=== PATIENT | male | born 1950 | race Caucasian/White ===

== ENCOUNTER 2017-02-05 09:06 | Day surgery (SDC) | payer BC ==
[~2017-02-05 09:06] MED LIST: Lidocaine 1%/Sod Bicarbonate in NS 8.4% 1 ML Syringe PRN; Sodium Chloride 0.9% 10 ML Syringe FLUSH PRN
[2017-02-05] MEDS: Lactated Ringers 1,000 ML IV SCH ×2 (09:30→10:43)
--- NOTE | 2017-02-05 09:54 | PCM.PREANE ---
Preanesthetic Assessment - Procedure Proposed Procedure: Diagnostic EGD - Anesthesia/Transfusion/Family Hx Anesthesia History: Prior Anesthesia Without Reaction Family History of Anesthesia Reaction: No Transfusion History: No Prior Transfusion(s) - Review of Systems General: No Symptoms Pulmonary: No Symptoms Cardiovascular: Other (HTN, heart murmer, hyperlipidemia ) Gastrointestinal: Difficulty Swallowing Neurological: No Symptoms Other: Reports: None - Physical Assessment NPO Status Date: 02/04/17 NPO Status Time: 22:00 O2 Sat by Pulse Oximetry: 95 Respiratory Rate: 20 Vital Signs: Last Vital Signs Temp 36.1 C 02/05/17 09:15 Pulse 53 L 02/05/17 09:15 Resp 20 02/05/17 09:15 BP 144/70 H 02/05/17 09:15 Pulse Ox 95 02/05/17 09:15 Height: 1.75 m Weight: 98.43 kg ASA Class: 2 Mental Status: Alert & Oriented x3 Airway Class: Mallampati = 1 Dentition: Reports: Normal Dentition Thyro-Mental Finger Breadths: 3 Mouth Opening Finger Breadths: 3 ROM/Head Extension: Full Lungs: Clear to Auscultation, Normal Respiratory Effort Cardiovascular: Regular Rate, Regular Rhythm, Murmurs - Allergies Allergies/Adverse Reactions: Allergies Allergy/AdvReac Type Severity Reaction Status Date / Time No Known Drug Allergies Allergy Other Verified 02/04/17 09:33 - Blood Blood Available: No Product(s) Available: None - Acknowledgements Anesthesia Type Planned: MAC Pt an Appropriate Candidate for the Planned Anesthesia: Yes Alternatives and Risks of Anesthesia Discussed w Pt/Guardian: Yes Pt/Guardian Understands and Agrees with Anesthesia Plan: Yes PreAnesthesia Questionnaire HEENT History: Reports: Allergic Rhinitis, Hard of Hearing, Other (See Below) Other HEENT History: bilateral impacted cerumen, bilateral hearing loss Cardiovascular History: Reports: High Cholesterol, Hypertension, Other (See Below) Other Cardiovascular History: chest pain, heart cath Respiratory History: Reports: Other (See Below) Other Respiratory History: cough Gastrointestinal History: Reports: GERD, Other (See Below) Other Gastrointestinal History: abdominal pain, esophagitis, Genitourinary History: Reports: BPH, Other (See Below) Other Genitourinary History: prsotate disease, prostatis Musculoskeletal History: Reports: Arthritis Psychiatric History: Reports: Anxiety, Depression Other Psychiatric History: fatigue Endocrine/Metabolic History: Reports: Obesity/BMI 30+ Other Endocrine/Metabolic History: vit D deficiency Dermatologic History: Reports: Other (See Below) Other Dermatologic History: skin cyst - Past Surgical History GI Surgical History: Reports: Appendectomy Male Surgical History: Reports: Vasectomy - SUBSTANCE USE Smoking Status *Q: Former Smoker Second Hand Smoke Exposure: No Recreational Drug Use History: No - HOME MEDS Home Medications: Home Meds Ascorbic Acid [Vitamin C] 500 mg PO BID 02/27/15 [History] Aspirin [Children's Aspirin] 81 mg PO DAILY 02/27/15 [History] Cholecalciferol (Vitamin D3) [Vitamin D-3] 400 unit PO DAILY 02/27/15 [History] Cranberry Ext/C/L. Sporogenes [Azo Cranberry] 1 tab PO BID 02/27/15 [History] Doxazosin [Cardura] 4 mg PO DAILY 02/27/15 [History] Dutasteride [Avodart] 0.5 mg PO DAILY 02/27/15 [History] Moexipril/Hydrochlorothiazide [Moexipril-HCTZ 15-25 MG] 15 - 25 mg PO DAILY [History] Pravastatin [Pravachol] 40 mg PO DAILY 02/27/15 [History] Saw [place] Fruit [Saw [place]] 450 mg PO BID 02/27/15 [History] Sertraline [Zoloft] 50 mg PO BID 02/27/15 [History] Finasteride [Finasteride] 5 mg PO DAILY 02/04/17 [History] Omeprazole 20 mg PO DAILY 02/04/17 [History] - CURRENT (IN HOUSE) MEDS Current Meds: Current Medications Lactated Ringer's (Ringers, Lactated) 1,000 mls @ 125 mls/hr IV ASDIRECTED EDY Stop: 02/05/17 23:00 Lidocaine/Sodium Bicarbonate (Buffered Lidocaine 1% In Ns 8.4%) 0.25 ml .XX ONETIME PRN PRN Reason: Prior to IV Start Stop: 02/05/17 18:00 Sodium Chloride (Saline Flush) 10 ml FLUSH ASDIRECTED PRN PRN Reason: Keep Vein Open Stop: 02/05/17 18:00
[2017-02-05] MEDS ORDERED: Propofol 200 MG/20 ML SDV ONE (11:14)
[2017-02-05] MEDS ORDERED: Midazolam 1 MG/ML 2 ML SDV ONE (11:15)
[2017-02-05] MEDS ORDERED: Lidocaine 1% 4 ML ONE (11:16)
--- NOTE | 2017-02-05 11:30 | PCM.OPNOTE ---
- General Post-Op/Procedure Note Date of Surgery/Procedure: 02/05/17 Operative Procedure(s): Esophagogastroduodenoscopy with proximal and distal random esophageal biopsies using cold forceps 2 Findings: Normal endoscopy Pre Op Diagnosis: Dysphagia and chronic GERD Post-Op Diagnosis: Same as above Anesthesia Technique: MAC, Moderate Sedation Primary Surgeon: Alon Gonzáles Pathology: Proximal and distal esophageal biopsies EBL in mLs: 0 Complications: None Condition: Good Free Text/Narrative:: After adequate IV sedation and analgesia was obtained patient was placed on his left side. Through a bite block a lubricated upper endoscope was inserted into the esophagus and then advanced under direct vision to the stomach. Additional air was given here. The scope was introduced into the duodenum through the pylorus. The second and first parts of the duodenum were endoscopically normal with no mass lesions or inflammatory changes seen. The antrum was normal as well. In the retroflexed view of the fundus and cardiac regions were unremarkable. There was no hiatal hernia. The rugal folds as well as gastric motility were grossly normal. The scope was withdrawn to the GE junction which was sharp. Random biopsies were taken in this area 2 using cold forceps for histologic review. The body of the esophagus was unremarkable but in the proximal third I took 2 biopsies for evaluation. The vocal cords were grossly normal. Air was removed as I finished the procedure. [employer] Work[employer] Supervisor photographs are taken for the patient and for the record.
[2017-02-05 12:23] VITALS: BP 124/66
== END 2017-02-05 12:15 | disposition home or self-care (01) ==
LOC: JD.SDS 09:06
PROVIDERS: ATTEND Surgery
DX: F41.9 Anxiety disorder, unspecified (principal); N40.1 Benign prostatic hyperplasia with lower urinary tract symptoms; R35.1 Nocturia; E66.9 Obesity, unspecified; K21.9 Gastro-esophageal reflux disease without esophagitis; I10 Essential (primary) hypertension; E78.00 Pure hypercholesterolemia, unspecified; E78.5 Hyperlipidemia, unspecified; E55.9 Vitamin D deficiency, unspecified; Z91.09 Other allergy status, other than to drugs and biological substances; Z79.82 Long term (current) use of aspirin; Z79.899 Other long term (current) drug therapy; Z90.49 Acquired absence of other specified parts of digestive tract; Z98.52 Vasectomy status; Z87.891 Personal history of nicotine dependence
CPT/HCPCS: 43239; 88305; J2250; J7120; 00740; J2704

== ENCOUNTER 2018-11-03 16:19 | Emergency (ER) | payer MEDICARE, BC ==
[2018-11-03] MEDS ORDERED: Sodium Chloride 0.9% 10 ML Syringe FLUSH PRN (16:36)
--- NOTE | 2018-11-03 17:17 | EDM.PDOC ---
ED HPI GENERAL MEDICAL PROBLEM - General Chief Complaint: Chest Pain Stated Complaint: CHEST PAIN Time Seen by Provider: 11/03/18 16:34 Source of Information: Reports: Patient, RN Notes Reviewed - History of Present Illness INITIAL COMMENTS - FREE TEXT/NARRATIVE: 68-year-old male comes in with a several minute episode of chest discomfort at home. He states he was in the process of carrying a box up steps from basement level of his home to the main floor when he developed a tightness across his anterior chest. That did continue for about 2 or 3 minutes. What really concerned him is that he did become "mildly diaphoretic". The pain did not radiate to his shoulder or arm. He did not get nauseated, severely lightheaded or dizzy. No shortness of breath or difficulty breathing. He does feel back to normal at this time. He has had prior episodes of chest discomfort and has had prior angiogram about 3 years ago which is reported to have been "clear". He has had numerous stress tests as well with his last stress test about one year ago. He does have a chronic heart murmur. He is not diabetic. He does not smoke. Family history is okay with some aunts and uncles with heart disease, mother " of congestive heart failure". Chest Pain Score (Numeric/FACES): 8 - Related Data Allergies Allergy/AdvReac Type Severity Reaction Status Date / Time No Known Drug Allergies Allergy Other Verified 11/03/18 16:27 Home Meds: Home Meds Ascorbic Acid [Vitamin C] 500 mg PO BID 02/27/15 [History] Aspirin [Children's Aspirin] 81 mg PO DAILY 02/27/15 [History] Cholecalciferol (Vitamin D3) [Vitamin D3] 400 unit PO DAILY 02/27/15 [History] Cranberry Ext/C/L. Sporogenes [Azo Cranberry] 1 tab PO BID 02/27/15 [History] Doxazosin [Cardura] 4 mg PO DAILY 02/27/15 [History] Dutasteride [Avodart] 0.5 mg PO DAILY 02/27/15 [History] Moexipril/Hydrochlorothiazide [Moexipril-HCTZ 15-25 MG] 15 - 25 mg PO DAILY [History] Pravastatin [Pravachol] 40 mg PO DAILY 02/27/15 [History] Saw [place] Fruit [Saw [place]] 450 mg PO BID 02/27/15 [History] Sertraline [Zoloft] 50 mg PO BID 02/27/15 [History] Finasteride 5 mg PO DAILY 02/04/17 [History] Omeprazole 20 mg PO DAILY 02/04/17 [History] Past Medical History HEENT History: Reports: Allergic Rhinitis, Hard of Hearing, Other (See Below) Other HEENT History: bilateral impacted cerumen, bilateral hearing loss Cardiovascular History: Reports: High Cholesterol, Hypertension, Other (See Below) Other Cardiovascular History: chest pain, heart cath Respiratory History: Reports: Other (See Below) Other Respiratory History: cough Gastrointestinal History: Reports: GERD, Other (See Below) Other Gastrointestinal History: abdominal pain, esophagitis, Genitourinary History: Reports: BPH, Other (See Below) Other Genitourinary History: prsotate disease, prostatis Musculoskeletal History: Reports: Arthritis Neurological History: Reports: None Psychiatric History: Reports: Anxiety, Depression Other Psychiatric History: fatigue Endocrine/Metabolic History: Reports: Obesity/BMI 30+ Other Endocrine/Metabolic History: vit D deficiency Hematologic History: Reports: None Immunologic History: Reports: None Oncologic (Cancer) History: Reports: None Dermatologic History: Reports: Other (See Below) Other Dermatologic History: skin cyst - Past Surgical History Head Surgeries/Procedures: Reports: None GI Surgical History: Reports: Appendectomy Male Surgical History: Reports: Vasectomy Social & Family History - Family History Family Medical History: Noncontributory Cardiac: Reports: CAD, Heart Failure Oncologic: Reports: Lung, Prostate - Tobacco Use Smoking Status *Q: Never Smoker - Caffeine Use Caffeine Use: Reports: None - Recreational Drug Use Recreational Drug Use: No ED ROS GENERAL - Review of Systems Review Of Systems: See Below Constitutional: Reports: Diaphoresis. Denies: Fever, Chills HEENT: Reports: No Symptoms (Mild, gone) Respiratory: Denies: Shortness of Breath, Pleuritic Chest Pain Cardiovascular: Reports: Chest Pain (Gone) GI/Abdominal: Denies: Abdominal Pain, Nausea, Vomiting Musculoskeletal: Denies: Neck Pain, Shoulder Pain, Arm Pain Neurological: Denies: Dizziness, Syncope, Trouble Speaking, Difficulty Walking ED EXAM, GENERAL - Physical Exam Exam: See Below General Appearance: Alert Eye Exam: Bilateral Eye: PERRL Throat/Mouth: Normal Inspection Head: Atraumatic. No: Facial Swelling Neck: Supple, Full Range of Motion Respiratory/Chest: No Respiratory Distress, Lungs Clear, Normal Breath Sounds, Chest Non-Tender Cardiovascular: Regular Rate, Rhythm, Systolic Murmur GI/Abdominal: Soft, Non-Tender Extremities: Normal Inspection Neurological: Alert, Oriented Skin Exam: Warm, Dry, Normal Color EKG INTERPRETATION EKG Date: 11/03/18 Rhythm: NSR P-Wave: Present QRS: Normal ST-T: Depressed (mild st depression V2-V4) Course - Vital Signs Last Recorded V/S: Last Vital Signs Temp 97.8 F 11/03/18 16:32 Pulse 69 11/03/18 16:32 Resp 16 11/03/18 16:32 BP 134/66 11/03/18 16:32 Pulse Ox 95 11/03/18 16:32 - Orders/Labs/Meds Orders: Active Orders 24 hr Category Date Time Status EKG 12 Lead [EKG Documentation Completion] [RC] STAT Care 11/03/18 16:36 Active Peripheral IV Care [RC] . DIRECTED Care 11/03/18 16:37 Active Chest 1V Frontal [CR] Stat Exams 11/03/18 16:36 Taken CBC W/O DIFF,HEMOGRAM [HEME] MOTH@0700 Lab 11/05/18 07:00 Ordered CBC W/O DIFF,HEMOGRAM [HEME] MOTH@0700 Lab 11/09/18 07:00 Ordered CBC W/O DIFF,HEMOGRAM [HEME] MOTH@0700 Lab 11/12/18 07:00 Ordered CBC W/O DIFF,HEMOGRAM [HEME] MOTH@0700 Lab 11/16/18 07:00 Ordered CBC W/O DIFF,HEMOGRAM [HEME] MOTH@0700 Lab 11/19/18 07:00 Ordered CBC W/O DIFF,HEMOGRAM [HEME] MOTH@0700 Lab 11/23/18 07:00 Ordered Heparin Sodium/D5W [Heparin 25,000 Units in D5W 500 ML] Med 11/03/18 19:15 Ordered 25,000 units in 500 ml IV TITRATE Sodium Chloride 0.9% [Saline Flush] Med 11/03/18 16:36 Active 10 ml FLUSH ASDIRECTED PRN Peripheral IV Insertion Adult [OM.PC] Stat Oth 11/03/18 16:36 Ordered Medication Orders Heparin Sodium/Dextrose (Heparin 25,000 Units In D5w 500 Ml) 25,000 units in 500 mls @ 23.623 mls/hr IV TITRATE EDY; Protocol Last Admin: 11/03/18 19:23 Dose: 12 units/kg/hr, 23.623 mls/hr Sodium Chloride (Saline Flush) 10 ml FLUSH ASDIRECTED PRN PRN Reason: Keep Vein Open Last Admin: 11/03/18 16:51 Dose: 10 ml Labs: Laboratory Tests 11/03/18 11/03/18 11/03/18 Range/Units 16:25 16:25 18:15 WBC 7.33 (4.23-9.07) K/mm3 RBC 4.96 (4.63-6.08) M/mm3 Hgb 13.8 D (13.7-17.5) gm/L Hct 42.0 (40.1-51.0) % MCV 84.7 (79.0-92.2) fl MCH 27.8 (25.7-32.2) pg MCHC 32.9 (32.2-35.5) g/dl RDW Std Deviation 44.1 H (35.1-43.9) fL Plt Count 208 (163-337) K/mm3 MPV 9.9 (9.4-12.3) fl Neut % (Auto) 85.8 H (34.0-67.9) % Lymph % (Auto) 9.1 L (21.8-53.1) % [place] % (Auto) 4.4 L (5.3-12.2) % Eos % (Auto) 0.4 L (0.8-7.0) Baso % (Auto) 0.0 L (0.1-1.2) % Neut # (Auto) 6.29 H (1.78-5.38) K/mm3 Lymph # (Auto) 0.67 L (1.32-3.57) K/mm3 [place] # (Auto) 0.32 (0.30-0.82) K/mm3 Eos # (Auto) 0.03 L (0.04-0.54) K/mm3 Baso # (Auto) 0.00 L (0.01-0.08) K/mm3 Manual Slide Review Normal smear Sodium 141 (136-145) mEq/L Potassium 3.8 (3.5-5.1) mEq/L Chloride 106 (98-107) mEq/L Carbon Dioxide 23 (21-32) mEq/L Anion Gap 15.8 H (5-15) BUN 32 H (7-18) mg/dL Creatinine 1.4 H (0.7-1.3) mg/dL Est Cr Clr Drug Dosing 52.14 mL/min Estimated GFR (MDRD) 50 (>60) mL/min BUN/Creatinine Ratio 22.9 H (14-18) Glucose 147 H (80-115) mg/dL Calcium 10.2 H (8.5-10.1) mg/dL Total Bilirubin 0.8 (0.2-1.0) mg/dL AST 24 (15-37) U/L ALT 52 (16-63) U/L Alkaline Phosphatase 63 (46-116) U/L Troponin I 0.024 0.044 (0.00-0.056) ng/mL Total Protein 7.2 (6.4-8.2) g/dl Albumin 4.0 (3.4-5.0) g/dl Globulin 3.2 gm/dL Albumin/Globulin Ratio 1.3 (1-2) Meds: Medications Generic Name Dose Route Start Last Admin Trade Name Freq PRN Reason Stop Dose Admin Heparin Sodium/Dextrose 25,000 units in 500 mls @ 23.623 mls/hr 11/03/18 19: 15 11/03/18 19:23 Heparin 25,000 Units In D5w 500 Ml IV 12 units/kg/hr TITRATE EDY 23.623 mls/hr Administration Protocol 12 UNITS/KG/HR Sodium Chloride 10 ml 11/03/18 16:36 11/03/18 16:51 Saline Flush FLUSH 10 ml ASDIRECTED PRN Administration Keep Vein Open Discontinued Medications Generic Name Dose Route Start Last Admin Trade Name Freq PRN Reason Stop Dose Admin Aspirin 324 mg 11/03/18 18:08 11/03/18 18:17 Aspirin PO 11/03/18 18:09 324 mg ONETIME ONE Administration Heparin Sodium (Porcine) 4,000 units 11/03/18 19:13 11/03/18 19:22 Heparin Sodium IVPUSH 11/03/18 19:14 4,000 units ONETIME ONE Administration - Re-Assessments/Exams Free Text/Narrative Re-Assessment/Exam: 11/03/18 18:11 EKG normal, CXR looks good, trop has come back slightly above usual baseline of .017 at .024. Will check a repeat trop at this time which will be about a 2 hr trop. Have given ASA 324 mg PO. 11/03/18 19:16. Repeat troponin came back further elevated at 0.044. He remains pain-free while here in the ED. However with these levels higher than the typical baseline reading of 0.017 and almost 50% increase in 2 hours I feel he should be transferred to [place] for Cardiology referral. His personal physician is Dr. Hernandez, [facility]. I have called [facility] first, therefore, they have no beds or ability to accept this patient this evening. Therefore I have contacted [facility], Dr Pulido, Hospitalist accepting Phys. He remains pain-free, has continued in sinus rhythm no ectopy. Have given heaparin 4000 mg bolus and have him on a heparin drip. He will be transferred by ground ambulance. Departure - Departure Time of Disposition: 19:38 Disposition: DC/Tfer to [facility] 02 Reason for Transfer *Q: Other Condition: Fair Clinical Impression: Acute coronary syndrome Referrals: Jeromy Hernandez MD [Primary Care Provider] - Forms: ED Department Discharge - My Orders Last 24 Hours: My Active Orders 11/03/18 16:36 EKG 12 Lead [EKG Documentation Completion] [RC] STAT Chest 1V Frontal [CR] Stat Sodium Chloride 0.9% [Saline Flush] 10 ml FLUSH ASDIRECTED PRN Peripheral IV Insertion Adult [OM.PC] Stat 11/03/18 16:37 Peripheral IV Care [RC] . DIRECTED 11/03/18 19:15 Heparin Sodium/D5W [Heparin 25,000 Units in D5W 500 ML] 25,000 units in 500 ml IV TITRATE 11/05/18 07:00 CBC W/O DIFF,HEMOGRAM [HEME] MOTH@0700 11/09/18 07:00 CBC W/O DIFF,HEMOGRAM [HEME] MOTH@0700 11/12/18 07:00 CBC W/O DIFF,HEMOGRAM [HEME] MOTH@0700 11/16/18 07:00 CBC W/O DIFF,HEMOGRAM [HEME] MOTH@0711/19/18 07:00 CBC W/O DIFF,HEMOGRAM [HEME] MOTH@69911/23/18 07:00 CBC W/O DIFF,HEMOGRAM [HEME] MOTH@699 - Assessment/Plan Last 24 Hours: My Active Orders 11/03/18 16:36 EKG 12 Lead [EKG Documentation Completion] [RC] STAT Chest 1V Frontal [CR] Stat Sodium Chloride 0.9% [Saline Flush] 10 ml FLUSH ASDIRECTED PRN Peripheral IV Insertion Adult [OM.PC] Stat 11/03/18 16:37 Peripheral IV Care [RC] . DIRECTED 11/03/18 19:15 Heparin Sodium/D5W [Heparin 25,000 Units in D5W 500 ML] 25,000 units in 500 ml IV TITRATE 11/05/18 07:00 CBC W/O DIFF,HEMOGRAM [HEME] MOTH@0711/09/18 07:00 CBC W/O DIFF,HEMOGRAM [HEME] MOTH@69911/12/18 07:00 CBC W/O DIFF,HEMOGRAM [HEME] MOTH@69911/16/18 07:00 CBC W/O DIFF,HEMOGRAM [HEME] MOTH@69911/19/18 07:00 CBC W/O DIFF,HEMOGRAM [HEME] MOTH@69911/23/18 07:00 CBC W/O DIFF,HEMOGRAM [HEME] MOTH@699
[2018-11-03] MEDS ORDERED: Aspirin 81 MG Tab.Chew PO ONE (18:08)
[2018-11-03] MEDS ORDERED: Heparin Sodium 5,000 Units/ML Vial IVPUSH ONE (19:13)
[2018-11-03] MEDS ORDERED: Heparin Sodium/D5W 25,000 UNITS/500 ML BAG IV SCH (19:15)
[2018-11-03 19:50] VITALS: BP 150/97
--- NOTE | 2018-11-04 06:38 | CR ---
Chest: Portable view of the chest was obtained. Comparison: No prior chest imaging is available. Heart size is felt to be slightly enlarged. Upper mediastinum is normal. Lungs are clear with no acute parenchymal change. Bony structures are grossly intact. Impression: 1. Slightly enlarged heart. Nothing acute is appreciated on portable chest x-ray. Diagnostic code #2
== END 2018-11-03 20:00 ==
LOC: JD.ED 16:19
DX: I24.9 Acute ischemic heart disease, unspecified (principal); E78.00 Pure hypercholesterolemia, unspecified; I10 Essential (primary) hypertension; F41.9 Anxiety disorder, unspecified; F32.9 Major depressive disorder, single episode, unspecified; Z79.82 Long term (current) use of aspirin; Z79.899 Other long term (current) drug therapy
CPT/HCPCS: 36415; 71045; 80053; 84484; 85025; 93005; 96365; 96376; 99285; A9270; J1644; 93010; 99284

== ENCOUNTER 2019-03-28 13:42 | Emergency (ER) | payer MEDICARE, BC ==
[2019-03-28 13:53] VITALS: BP 159/64; PULSE 52
--- NOTE | 2019-03-28 15:24 | EDM.PDOC ---
ED HPI GENERAL MEDICAL PROBLEM - General Chief Complaint: Cardiovascular Problem Stated Complaint: HIGH BLOOD PRESSURE Time Seen by Provider: 03/28/19 13:59 Source of Information: Reports: Patient History Limitations: Reports: No Limitations - History of Present Illness INITIAL COMMENTS - FREE TEXT/NARRATIVE: The patient presents with some dizziness and hypertension. The patient had some adjustments to her medications when he was sent to [place]. Ever since then his blood pressures have been running high. Today he was feeling good but developed some dizziness and his blood pressure was 180/80. He denies headache , weakness, chest pain, shortness of breath, abdominal pain, nausea or vomiting. Onset: Gradual Duration: Minutes: Severity: Mild Improves with: Reports: None Worsens with: Reports: None Associated Symptoms: Reports: No Other Symptoms - Related Data Allergies Allergy/AdvReac Type Severity Reaction Status Date / Time No Known Drug Allergies Allergy Other Verified 03/28/19 13:52 Home Meds: Home Meds Ascorbic Acid [Vitamin C] 500 mg PO BID 02/27/15 [History] Aspirin [Children's Aspirin] 81 mg PO DAILY 02/27/15 [History] Cholecalciferol (Vitamin D3) [Vitamin D3] 2,000 unit PO DAILY 02/27/15 [History] Cranberry Ext/C/L. Sporogenes [Azo Cranberry] 1 tab PO BID 02/27/15 [History] Pravastatin [Pravachol] 40 mg PO DAILY 02/27/15 [History] Saw Orla Fruit [Saw Orla] 450 mg PO BID 02/27/15 [History] Sertraline [Zoloft] 100 mg PO DAILY 02/27/15 [History] Finasteride 5 mg PO DAILY 02/04/17 [History] Omeprazole 20 mg PO DAILY 02/04/17 [History] Tamsulosin HCl [Flomax] 0.4 mg PO DAILY 03/28/19 [History] amLODIPine [Norvasc] 10 mg PO DAILY 03/28/19 [History] Past Medical History HEENT History: Reports: Allergic Rhinitis, Hard of Hearing, Other (See Below) Other HEENT History: bilateral impacted cerumen, bilateral hearing loss Cardiovascular History: Reports: High Cholesterol, Hypertension, Other (See Below) Other Cardiovascular History: chest pain, heart cath Respiratory History: Reports: Other (See Below) Other Respiratory History: cough Gastrointestinal History: Reports: GERD, Other (See Below) Other Gastrointestinal History: abdominal pain, esophagitis, Genitourinary History: Reports: BPH, Other (See Below) Other Genitourinary History: prsotate disease, prostatis Musculoskeletal History: Reports: Arthritis Neurological History: Reports: None Psychiatric History: Reports: Anxiety, Depression Other Psychiatric History: fatigue Endocrine/Metabolic History: Reports: Obesity/BMI 30+ Other Endocrine/Metabolic History: vit D deficiency Hematologic History: Reports: None Immunologic History: Reports: None Oncologic (Cancer) History: Reports: None Dermatologic History: Reports: Other (See Below) Other Dermatologic History: skin cyst - Past Surgical History Head Surgeries/Procedures: Reports: None GI Surgical History: Reports: Appendectomy Male Surgical History: Reports: Vasectomy Social & Family History - Family History Family Medical History: Noncontributory Cardiac: Reports: CAD, Heart Failure Oncologic: Reports: Lung, Prostate - Tobacco Use Smoking Status *Q: Former Smoker Used Tobacco, but Quit: Yes Month/Year Tobacco Last Used: 1979 - Caffeine Use Caffeine Use: Reports: None - Recreational Drug Use Recreational Drug Use: No ED ROS GENERAL - Review of Systems Review Of Systems: See Below Constitutional: Reports: No Symptoms HEENT: Reports: No Symptoms Respiratory: Reports: No Symptoms Cardiovascular: Reports: No Symptoms Endocrine: Reports: No Symptoms GI/Abdominal: Reports: No Symptoms : Reports: No Symptoms Musculoskeletal: Reports: No Symptoms Skin: Reports: No Symptoms Neurological: Reports: No Symptoms Psychiatric: Reports: No Symptoms ED EXAM, GENERAL - Physical Exam Exam: See Below Exam Limited By: No Limitations General Appearance: Alert, No Apparent Distress Ears: Normal External Exam Nose: Normal Inspection Head: Atraumatic, Normocephalic Neck: Normal Inspection Respiratory/Chest: No Respiratory Distress, Lungs Clear, Normal Breath Sounds Cardiovascular: Regular Rate, Rhythm, No Edema, No Murmur GI/Abdominal: Soft, Non-Tender, No Organomegaly, No Mass Back Exam: Normal Inspection Extremities: Normal Inspection EKG INTERPRETATION EKG Date: 03/28/19 Time: 14:22 Rhythm: Other (sinus bradycardia) [place]: Normal P-Wave: Present QRS: Normal ST-T: Normal QT: Normal EKG Interpretation Comments: Q waves in the anterior leads seen on prior EKG. Course - Vital Signs Last Recorded V/S: Last Vital Signs Temp 97.4 F 03/28/19 13:50 Pulse 52 L 03/28/19 13:50 Resp 16 03/28/19 13:50 BP 159/64 H 03/28/19 13:50 Pulse Ox 97 03/28/19 13:50 - Orders/Labs/Meds Orders: Active Orders 24 hr Category Date Time Status Cardiac Monitoring [RC] . DIRECTED Care 03/28/19 14:10 Active EKG Documentation Completion [RC] STAT Care 03/28/19 14:10 Active Labs: Laboratory Tests 03/28/19 03/28/19 Range/Units 14:23 14:23 WBC 5.62 (4.23-9.07) K/mm3 RBC 5.23 (4.63-6.08) M/mm3 Hgb 14.7 (13.7-17.5) gm/dl Hct 43.9 (40.1-51.0) % MCV 83.9 (79.0-92.2) fl MCH 28.1 (25.7-32.2) pg MCHC 33.5 (32.2-35.5) g/dl RDW Std Deviation 44.3 H (35.1-43.9) fL Plt Count 191 (163-337) K/mm3 MPV 9.9 (9.4-12.3) fl Neut % (Auto) 61.0 (34.0-67.9) % Lymph % (Auto) 24.2 (21.8-53.1) % [place] % (Auto) 12.8 H (5.3-12.2) % Eos % (Auto) 1.6 (0.8-7.0) Baso % (Auto) 0.2 (0.1-1.2) % Neut # (Auto) 3.43 (1.78-5.38) K/mm3 Lymph # (Auto) 1.36 (1.32-3.57) K/mm3 [place] # (Auto) 0.72 (0.30-0.82) K/mm3 Eos # (Auto) 0.09 (0.04-0.54) K/mm3 Baso # (Auto) 0.01 (0.01-0.08) K/mm3 Sodium 142 (136-145) mEq/L Potassium 4.0 (3.5-5.1) mEq/L Chloride 109 H (98-107) mEq/L Carbon Dioxide 26 (21-32) mEq/L Anion Gap 11.0 (5-15) BUN 16 (7-18) mg/dL Creatinine 1.0 (0.7-1.3) mg/dL Est Cr Clr Drug Dosing 70.70 mL/min Estimated GFR (MDRD) > 60 (>60) mL/min BUN/Creatinine Ratio 16.0 (14-18) Glucose 101 (80-115) mg/dL Calcium 9.9 (8.5-10.1) mg/dL Total Bilirubin 1.0 (0.2-1.0) mg/dL AST 14 L (15-37) U/L ALT 37 (16-63) U/L Alkaline Phosphatase 77 (46-116) U/L Troponin I < 0.017 (0.00-0.056) ng/mL Total Protein 6.9 (6.4-8.2) g/dl Albumin 3.9 (3.4-5.0) g/dl Globulin 3.0 gm/dL Albumin/Globulin Ratio 1.3 (1-2) - Re-Assessments/Exams Free Text/Narrative Re-Assessment/Exam: 03/28/19 15:25 I ordered an EKG and labs. His EKG shows a NSR with no acute changes. His CBC and CMP look good. His troponin is negative. I will discharge him home. Departure - Departure Time of Disposition: 15:30 Disposition: Home, Self-Care 01 Condition: Good Clinical Impression: Dizziness Hypertension Qualifiers: Hypertension type: essential hypertension Qualified Code(s): I10 - Essential ( primary) hypertension Referrals: Jeromy Hernandez MD [Primary Care Provider] - 1 Week Additional Instructions: Take your medication as prescribed. Talk to Dr Hernandez or follow up with him and see what changes he would like to make. - My Orders Last 24 Hours: My Active Orders 03/28/19 14:10 Cardiac Monitoring [RC] . DIRECTED EKG Documentation Completion [RC] STAT - Assessment/Plan Last 24 Hours: My Active Orders 03/28/19 14:10 Cardiac Monitoring [RC] . DIRECTED EKG Documentation Completion [RC] STAT
== END 2019-03-28 15:45 | disposition home or self-care (01) ==
LOC: JD.ED 13:42
DX: I10 Essential (primary) hypertension (principal); E78.00 Pure hypercholesterolemia, unspecified; K21.9 Gastro-esophageal reflux disease without esophagitis; F41.9 Anxiety disorder, unspecified; F32.9 Major depressive disorder, single episode, unspecified; Z87.891 Personal history of nicotine dependence; Z79.82 Long term (current) use of aspirin; Z79.899 Other long term (current) drug therapy
CPT/HCPCS: 36415; 80053; 84484; 85025; 93005; 99283-25

== ENCOUNTER 2020-05-16 07:50 | Day surgery (SDC) | payer MEDICARE, BC ==
[~2020-05-16 07:50] MED LIST changes: +Lactated Ringers 1,000 ML IV SCH; +Lidocaine 1%/Sod Bicarbonate in NS 8.4% 1 ML Syringe IDERM PRN; -Lidocaine 1%/Sod Bicarbonate in NS 8.4% 1 ML Syringe PRN
--- NOTE | 2020-05-16 07:55 | PCM.PREANE ---
Preanesthetic Assessment - Procedure Proposed Procedure: Screening Colonoscopy - Anesthesia/Transfusion/Family Hx Anesthesia History: Prior Anesthesia Without Reaction Family History of Anesthesia Reaction: No Transfusion History: No Prior Transfusion(s) Intubation History: Unknown - Review of Systems General: No Symptoms Pulmonary: No Symptoms (Former smoker: quit 1979 ETOH: rarely), Cough (Post nasal drip/cough) Cardiovascular: No Symptoms (2016 carciac work up including angiography which was benign. No history of [place]./HTN, Hyperlipidemia, Elevated cholesterol), Dyspnea on Exertion Gastrointestinal: No Symptoms (GERD- related to chest pain/improved on prilosec), Constipation Neurological: No Symptoms (lower chronic back pain), Dizziness (related to vertigo) Other: Reports: None (BPH), Easy Bleeding, Sinus Problem (Allergic rhinitis), Throat Pain (History of TMJ), Neck Pain (stiff neck), Anxiety - Physical Assessment NPO Status Date: 05/16/20 NPO Status Time: 04:00 (drink prep) Vital Signs: HR:86 Sat:95% Temp:97.8 Resp:16 B/P:162/81 Height: 1.75 m Weight: 96 kg ASA Class: 2 Mental Status: Alert & Oriented x3 Airway Class: Mallampati = 2 Dentition: Reports: Normal Dentition, Caries Thyro-Mental Finger Breadths: 3 Mouth Opening Finger Breadths: 3 ROM/Head Extension: Full Lungs: Clear to Auscultation, Normal Respiratory Effort Cardiovascular: Regular Rate, Regular Rhythm, Murmurs - Imaging/EKG Impressions: EKG: SR rate=61, Probable left atrial abnormality, age indeterminate anterior infarct (No changes from previous 2019 EKG) - Allergies Allergies/Adverse Reactions: Allergies Allergy/AdvReac Type Severity Reaction Status Date / Time No Known Drug Allergies Allergy Other Verified 05/15/20 13:05 - Anesthesia Plan Pre-Op Medication Ordered: None - Acknowledgements Anesthesia Type Planned: MAC Pt an Appropriate Candidate for the Planned Anesthesia: Yes Alternatives and Risks of Anesthesia Discussed w Pt/Guardian: Yes Pt/Guardian Understands and Agrees with Anesthesia Plan: Yes PreAnesthesia Questionnaire HEENT History: Reports: Allergic Rhinitis, Hard of Hearing, Impaired Vision, Other (See Below) Other HEENT History: bilateral impacted cerumen, bilateral hearing loss, TMJ, wears glasses Cardiovascular History: Reports: High Cholesterol, Hypertension, Other (See Below) Other Cardiovascular History: chest pain, heart cath, chest discomfort Respiratory History: Reports: Other (See Below) Other Respiratory History: cough Gastrointestinal History: Reports: GERD, Other (See Below) Other Gastrointestinal History: abdominal pain, esophagitis Genitourinary History: Reports: BPH, Other (See Below) Other Genitourinary History: prsotate disease, prostatis [employer] History: Reports: None Musculoskeletal History: Reports: Arthritis Neurological History: Reports: None Psychiatric History: Reports: Anxiety, Depression Other Psychiatric History: fatigue Endocrine/Metabolic History: Reports: Obesity/BMI 30+, Vitamin D Deficiency Other Endocrine/Metabolic History: vit D deficiency Hematologic History: Reports: None Immunologic History: Reports: None Oncologic (Cancer) History: Reports: None Dermatologic History: Reports: Other (See Below) Other Dermatologic History: skin cyst - Infectious Disease History Infectious Disease History: Reports: None - Past Surgical History Head Surgeries/Procedures: Reports: None Cardiovascular Surgical History: Reports: None Respiratory Surgical History: Reports: None GI Surgical History: Reports: Appendectomy, Colonoscopy, EGD Male Surgical History: Reports: Vasectomy Other Male Surgeries/Procedures: enlarged prostate Neurological Surgical History: Reports: None Musculoskeletal Surgical History: Reports: None Oncologic Surgical History: Reports: None - SUBSTANCE USE Tobacco Use Status *Q: Former Tobacco User Recreational Drug Use History: No - HOME MEDS Home Medications: Home Meds Ascorbic Acid [Vitamin C] 500 mg PO DAILY 02/27/15 [History] Aspirin [Children's Aspirin] 81 mg PO DAILY 02/27/15 [History] Cholecalciferol (Vitamin D3) [Vitamin D3] 2,000 unit PO DAILY 02/27/15 [History] Pravastatin [Pravachol] 40 mg PO DAILY 02/27/15 [History] Saw Julian Fruit [Saw Julian] 450 mg PO BID 02/27/15 [History] Sertraline [Zoloft] 50 mg PO BID 02/27/15 [History] Finasteride 5 mg PO DAILY 02/04/17 [History] Omeprazole 20 mg PO DAILY 02/04/17 [History] Tamsulosin HCl [Flomax] 0.8 mg PO DAILY 03/28/19 [History] Acetaminophen [Tylenol Extra Strength] 1,000 mg PO Q6H PRN 05/15/20 [History] Cranberry 400 mg PO DAILY 05/15/20 [History] Docusate Sodium [Colace] 100 mg PO BID PRN 05/15/20 [History] Lisinopril/Hydrochlorothiazide [Lisinopril-Hctz 20-25 mg Tab] 1 tab PO DAILY 05/15/20 [History] Naproxen Sodium 220 mg PO BID PRN 05/15/20 [History] - CURRENT (IN HOUSE) MEDS Current Meds: Current Medications Lactated Ringer's (Ringers, Lactated) 1,000 mls @ 125 mls/hr IV ASDIRECTED EDY Stop: 05/16/20 23:00 Lidocaine/Sodium Bicarbonate (Buffered Lidocaine 1% In Ns 8.4%) 0.25 ml IDERM ONETIME PRN PRN Reason: Prior to IV Start Stop: 05/16/20 18:00 Sodium Chloride (Saline Flush) 10 ml FLUSH ASDIRECTED PRN PRN Reason: Keep Vein Open Stop: 05/16/20 18:00
[2020-05-16] MEDS ORDERED: Lidocaine 1% 2 ML ONE ×2 (08:24)
[2020-05-16] MEDS ORDERED: Propofol 200 MG/20 ML SDV ONE ×2 (08:24→08:53)
[2020-05-16] MEDS ORDERED: fentaNYL 100 MCG/2 ML SDV ONE (08:24)
--- NOTE | 2020-05-16 09:35 | PCM48HPAN ---
Post Anesthesia Note - EVALUATION WITHIN 48HRS OF ANESTHETIC Vital Signs in Normal Range: Yes Patient Participated in Evaluation: Yes Respiratory Function Stable: Yes Airway Patent: Yes Cardiovascular Function Stable: Yes Hydration Status Stable: Yes Pain Control Satisfactory: Yes Nausea and Vomiting Control Satisfactory: Yes Mental Status Recovered: Yes Vital Signs: Last Vital Signs Temp 36.6 C 05/16/20 07:55 Pulse 86 05/16/20 07:55 Resp 16 05/16/20 07:55 BP 162/81 H 05/16/20 07:55 Pulse Ox 95 05/16/20 07:55
--- NOTE | 2020-05-16 09:39 | PCM.PRNOTE ---
- Free Text/Narrative Note: Date: 05/16/2020 Procedure: screening olonoscopy Endoscopist: Humberto Rosa MD Findings: Cecum reached with colonoscope. Prep was very good. There appeared to be a few scattered small vascular lesions like hemangiomas, with hyperpigmentation, mostly in the rectum. One such lesion was biopsied in the cecum. Sigmoid diverticulosis. Detailed Report: The patient was taken to the endoscopy suite and placed in left lateral decubitus position. Time out was performed and monitored anesthesia care was initiated. Visual inspection of the anus revealed no abnormality. Digital rectal exam was unremarkable. The lubricated colonoscope was then inserted and advanced all the way to the cecum. The ileocecal valve and appendiceal orifice were visualized. The prep was very good. On slow withdrawal of the scope, mucosal surfaces were carefully inspected. A small, raised hyperpigmented lesion that appeared to be vascular in origin was noted in the cecum. This was removed with forceps and the base tissue was fulgurated. There was diverticular disease, mostly in the sigmoid colon. A few other telangiectatic lesions were noted in the rectum. On retroflexion within the rectum no abnormalities were noted. Air was suctioned prior to removal of the scope. The patient tolerated the procedure well.
[2020-05-16 10:07] VITALS: BP 129/77; PULSE 58
== END 2020-05-16 10:12 | disposition home or self-care (01) ==
LOC: JD.SDS 07:50
PROVIDERS: ATTEND Surgery
DX: Z12.11 Encounter for screening for malignant neoplasm of colon (principal); K63.89 Other specified diseases of intestine; K63.5 Polyp of colon; K57.30 Diverticulosis of large intestine without perforation or abscess without bleeding; F41.9 Anxiety disorder, unspecified; N40.1 Benign prostatic hyperplasia with lower urinary tract symptoms; R35.1 Nocturia; E66.9 Obesity, unspecified; I10 Essential (primary) hypertension; E78.00 Pure hypercholesterolemia, unspecified; Z91.048 Other nonmedicinal substance allergy status; Z79.82 Long term (current) use of aspirin; Z79.899 Other long term (current) drug therapy; Z98.890 Other specified postprocedural states; Z87.891 Personal history of nicotine dependence; Z68.25 Body mass index [BMI] 25.0-25.9, adult
CPT/HCPCS: 45380; J2001; J2704; J3010; J7120; 00812

== ENCOUNTER 2020-12-05 13:01 | Emergency (ER) | payer MEDICARE, BC ==
[2020-12-05] MEDS ORDERED: Colchicine 0.6 MG Tab PO ONE (13:51)
[2020-12-05] MEDS ORDERED: predniSONE 20 MG Tab PO ONE (13:52)
--- NOTE | 2020-12-05 13:57 | EDM.PDOC ---
ED HPI GENERAL MEDICAL PROBLEM - General Chief Complaint: Lower Extremity Injury/Pain Stated Complaint: LT FOOT PAIN X 5 DAYS Time Seen by Provider: 12/05/20 13:40 Source of Information: Reports: Patient History Limitations: Reports: No Limitations - History of Present Illness INITIAL COMMENTS - FREE TEXT/NARRATIVE: 70-year-old male presents to the ED with acute pain in his right ankle and midfoot starting about 5 days ago. Patient states he awoke about 0400 hrs. in the morning to void and recognize severe pain with walking in the arch and mid right foot. Subsequently the pain is gradually increased in intensity in spite of using Aleve for pain. Is also developed some mild pain in the left midfoot. Patient has had one gout attack in the left foot in the past. Patient has no known trauma but he can barely walk at present time and in fact came to the ED on crutches due to the severity of pain in his right foot. Onset: Sudden Onset Date: 12/01/20 Duration: Day(s):, Constant, Getting Worse Location: Reports: Lower Extremity, Right (Pain in the mid right foot and ankle) Quality: Reports: Ache, Throbbing Severity: Severe (8-9 out of 10.) Improves with: Reports: Rest Worsens with: Reports: Other (Severe pain with walking or weightbearing on the right side.) Context: Reports: Other (Spontaneous occurrence starting 5 nights ago when he a woke to void in the middle of the night he recognized severe pain in his right midfoot). Denies: Activity ( Patient comes to the ED on crutches.), Exercise, Lifting, Sick Contact, Trauma Associated Symptoms: Reports: No Other Symptoms, Malaise. Denies: Confusion, Chest Pain, Cough, cough w sputum, Diaphoresis, Fever/Chills, Headaches, Loss of Appetite, Nausea/Vomiting, Rash, Seizure, Shortness of Breath, Syncope Treatments [employer]: Reports: NSAIDS (Aleve as needed.) Right Foot Pain Score (Numeric/FACES): 10 - Related Data Allergies Allergy/AdvReac Type Severity Reaction Status Date / Time No Known Drug Allergies Allergy Other Verified 12/05/20 13:19 Home Meds: Home Meds Ascorbic Acid [Vitamin C] 500 mg PO DAILY 02/27/15 [History] Aspirin [Children's Aspirin] 81 mg PO DAILY 08/24/15 [History] Cholecalciferol (Vitamin D3) [Vitamin D3] 2,000 unit PO DAILY 02/27/15 [History] Pravastatin [Pravachol] 40 mg PO DAILY 02/27/15 [History] Saw [place] Fruit [Saw [place]] 450 mg PO BID 02/27/15 [History] Finasteride 5 mg PO DAILY 02/04/17 [History] Omeprazole 20 mg PO DAILY 02/04/17 [History] Tamsulosin HCl [Flomax] 0.4 mg PO DAILY 03/28/19 [History] Acetaminophen [Tylenol Extra Strength] 1,000 mg PO Q6H PRN 05/15/20 [History] Cranberry 400 mg PO DAILY 05/15/20 [History] Docusate Sodium [Colace] 100 mg PO BID PRN 05/15/20 [History] Naproxen Sodium 220 mg PO BID PRN 05/15/20 [History] Aspirin [Halfprin] 81 mg PO DAILY 12/05/20 [History] Chlorthalidone 25 mg PO DAILY 12/05/20 [History] Colchicine 0.6 mg PO Q1H #2 capsule 12/05/20 [Rx] Diclofenac Sodium [Voltaren] 75 mg PO BIDMEALS #14 tab.cr 12/05/20 [Rx] Losartan Potassium [Cozaar] 100 mg PO DAILY 12/05/20 [History] Potassium Chloride [Klor-Con M20] 20 meq PO DAILY 12/05/20 [History] Sertraline [Zoloft] 50 mg PO DAILY 12/05/20 [History] Spironolactone [Aldactone] 25 mg PO DAILY 12/05/20 [History] oxyCODONE HCl/Acetaminophen [Percocet 5-325 mg Tablet] 1 each PO Q4H PRN #12 tablet 12/05/20 [Rx] predniSONE [Prednisone] 20 mg PO BID #10 tablet 12/05/20 [Rx] Past Medical History HEENT History: Reports: Allergic Rhinitis, Hard of Hearing, Impaired Vision, Other (See Below) Other HEENT History: bilateral impacted cerumen, bilateral hearing loss, TMJ, wears glasses Cardiovascular History: Reports: High Cholesterol, Hypertension, Other (See Below) Other Cardiovascular History: chest pain, heart cath, chest discomfort Respiratory History: Reports: Other (See Below) Other Respiratory History: cough Gastrointestinal History: Reports: GERD, Other (See Below) Other Gastrointestinal History: abdominal pain, esophagitis Genitourinary History: Reports: BPH, Other (See Below) Other Genitourinary History: prostate disease, prostatitis [employer] SPECIALIST History: Reports: None Musculoskeletal History: Reports: Arthritis, Gout, Osteoarthritis Neurological History: Reports: None Psychiatric History: Reports: Anxiety, Depression Other Psychiatric History: fatigue Endocrine/Metabolic History: Reports: Obesity/BMI 30+, Vitamin D Deficiency, Other (See Below) (Patient developed some significant gynecomastia with very painful breasts while on Aldactone. His breast remains mildly sore at this time even after 3 months of discontinuation of spironolactone.) Other Endocrine/Metabolic History: vit D deficiency Hematologic History: Reports: None Immunologic History: Reports: None Oncologic (Cancer) History: Reports: None Dermatologic History: Reports: Other (See Below) Other Dermatologic History: skin cyst - Infectious Disease History Infectious Disease History: Reports: None - Past Surgical History Head Surgeries/Procedures: Reports: None Cardiovascular Surgical History: Reports: None Respiratory Surgical History: Reports: None GI Surgical History: Reports: Appendectomy, Colonoscopy, EGD Male Surgical History: Reports: Vasectomy Other Male Surgeries/Procedures: enlarged prostate Neurological Surgical History: Reports: None Musculoskeletal Surgical History: Reports: None Oncologic Surgical History: Reports: None Social & Family History - Family History Family Medical History: No Pertinent Family History Cardiac: Reports: CAD, Heart Failure Oncologic: Reports: Lung, Prostate - Tobacco Use Tobacco Use Status *Q: Former Tobacco User Used Tobacco, but Quit: Yes Month/Year Tobacco Last Used: 12/1979 - Caffeine Use Caffeine Use: Reports: None - Recreational Drug Use Recreational Drug Use: No - Living Situation & Occupation Living situation: Reports: Occupation: Retired Review of Systems - Review of Systems Review Of Systems: See Below Constitutional: Denies: Chills, Diaphoresis, Fever, Weakness, Other Eyes: Reports: No Symptoms Ears: Reports: No Symptoms Nose: Reports: No Symptoms Mouth/Throat: Reports: No Symptoms Respiratory: Reports: No Symptoms Cardiovascular: Reports: Other (Chronic hypertension elevated cholesterol). Denies: Chest Pain, Edema, Irregular Heart Rate, Lightheadedness GI/Abdominal: Reports: Constipation Genitourinary: Reports: Other (Urinary frequency. Nocturia x2-3.) Musculoskeletal: Reports: Neck Pain, Shoulder Pain, Back Pain, Joint Pain, Other (Knees and hips at times. Currently having a gout attack right foot midfoot and ankle) Skin: Reports: No Symptoms Neurological: Reports: No Symptoms Psychiatric: Reports: No Symptoms ED EXAM, GENERAL - Physical Exam Exam: See Below Exam Limited By: No Limitations General Appearance: Alert, WD/WN, No Apparent Distress, Other (Temperature is 36.9 degrees. Heart rate was 89 and sinus. Respiratory was 20 with O2 sats of 98% room air BP elevated at 176/87.) Eye Exam: Bilateral Eye: Normal Inspection, PERRL (No scleral icterus or blepharal pallor.) Peripheral Pulses: 2+: Posterior Tibial (L), Posterior Tibial (R), Dorsalis P doris (L), Dorsalis Pedis (R) GI/Abdominal: Normal Bowel Sounds, Soft, Non-Tender, No Organomegaly, No Mass, Pelvis Stable Extremities: Other (Examination of his right foot reveals some erythema medial aspect of the foot. Pain in the midfoot and along the talar joint anteriorly. Patient has marked pain with dorsiflexion and plantarflexion of the foot.) Neurological: Alert, Oriented, CN II-XII Intact, Normal Cognition, Other (Comes to the ED on crutches cannot weight-bear on the right foot.). No: Normal Gait Psychiatric: Normal Affect, Normal Mood, Other (History of depression.) Skin Exam: Warm, Dry, Intact, Normal Color, Erythema (Spotty erythema right medial foot due to inflammation from gout) Course - Vital Signs Last Recorded V/S: Last Vital Signs Temp 36.9 C 12/05/20 13:13 Pulse 80 12/05/20 14:15 Resp 16 12/05/20 14:15 BP 124/78 12/05/20 14:15 Pulse Ox 98 12/05/20 14:15 - Orders/Labs/Meds Meds: Medications Discontinued Medications Generic Name Dose Route Start Last Admin Trade Name Marinq PRN Reason Stop Dose Admin Colchicine 0.6 mg 12/05/20 13:51 12/05/20 14:04 Colchicine 0.6 Mg Tab PO 12/05/20 13:52 0.6 mg ONETIME ONE Administration Prednisone 30 mg 12/05/20 13:52 12/05/20 14:03 Prednisone 20 Mg Tab PO 12/05/20 13:53 30 mg ONETIME ONE Administration - Radiology Interpretation Free Text/Narrative:: 70-year-old male presents to the ED with a 5-day history of severe pain in his right foot with no known trauma or injury. Patient awoke around 0400 hrs. in the morning to void and recognize significant pain in his right midfoot and ankle. Since that time he has had to basically get off his foot due to the severity of the pain. He can even stand the sheets touching his right foot due to pain. Denies any fever chills. He does have a history of remote gout attack in his left foot. Never bothered his right foot in the past. On examination pain clinic pain and erythema is localized to the mid bones of the right foot and along the anterior talus. Clinically he has an acute gout attack. Plan he will be placed on prednisone 20 mg twice daily for 5 days with breakfast and supper. He was given 30 mg in the ED and will take 20 mg before bed tonight. Percocet tabs five 325 mg strength 1 or 2 every 4-6 hours necessary for pain relief for the next day and a half or so. Colchicine 0.6 mg given in the ED and he will sampler pickup to further tablets to be taken 1 hour apart this afternoon for a total of 3 tablets. Placed on Voltaren 75 mg twice daily for 7 days to clear up Completely. Advised extremities in the clinic and he has blood work completed he needs a uric acid level to be obtained to make sure that he has no underlying interstitial nephritis from hyperuricemia. Departure - Departure Time of Disposition: 13:52 Disposition: Home, Self-Care 01 Condition: Fair Clinical Impression: Gout attack Qualifiers: Gout site: foot Gout etiology: idiopathic Laterality: left Qualified Code(s): M10.072 - Idiopathic gout, left ankle and foot - Discharge Information Prescriptions: Colchicine 0.6 mg PO Q1H #2 capsule oxyCODONE HCl/Acetaminophen [Percocet 5-325 mg Tablet] 1 each PO Q4H PRN #12 tablet PRN Reason: pain relief predniSONE [Prednisone] 20 mg PO BID #10 tablet Diclofenac Sodium [Voltaren] 75 mg PO BIDMEALS #14 tab.cr Instructions: Low-Purine Eating Plan Referrals: Jeromy Hernandez MD [Primary Care Provider] - Forms: ED Department Discharge Additional Instructions: Evaluation in the emergency room today in regards to 5-day history of severe pain left foot that came on abruptly during the night.. Examination reveals evidence of acute gout with inflammation primarily in the mid bones of the Lt foot. You have a remote history of gout attack in your other foot. Treatment is colchicine 0.6 mg tablet 1 tablet by mouth every hour for 3 consecutive hours. First tablet was given in the ED at approximately 1400 hrs. today. Second tablet is due around 1500 hrs. and third tablet at 1600 hrs. today. Prednisone 30 mg was administered in the ED. You will need to take 20 mg twice daily for the next 5 days to bring the gout attack under control. I would suggest a second tablet at bedtime tonight and then start tomorrow morning with breakfast and supper. Pain medication is Percocet tabs 5 /325 mg strength 1 tablet every 4-6 hours necessary for pain relief. Use Voltaren 75 mg twice daily with food to reduce pain and inflammation in the left foot for the next 7 days. Do not take any further Aleve or Naprosyn while on the above medications. May use Tylenol if necessary. Expect marked improvement over the next 36 to 48 hours with 80 to 90% reduction in pain. The next time you are going to have lab work done at the clinic as to have your uric acid level checked in your blood. Sepsis Event Note (ED) - Evaluation Sepsis Screening Result: No Definite Risk - Focused Exam Vital Signs: Vital Signs Temp Pulse Resp BP Pulse Ox 12/05/20 14:15 80 16 124/78 98 12/05/20 13:13 36.9 C 89 20 176/87 H 98
[2020-12-05 14:49] VITALS: BP 124/78; PULSE 80
== END 2020-12-05 14:30 | disposition home or self-care (01) ==
LOC: JD.ED 13:01
DX: M10.072 Idiopathic gout, left ankle and foot (principal); E78.00 Pure hypercholesterolemia, unspecified; I10 Essential (primary) hypertension; K21.9 Gastro-esophageal reflux disease without esophagitis; E66.9 Obesity, unspecified; Z68.30 Body mass index [BMI] 30.0-30.9, adult; Z87.891 Personal history of nicotine dependence; Z79.82 Long term (current) use of aspirin; Z79.899 Other long term (current) drug therapy
CPT/HCPCS: 99283; A9270; J7512; 99284

== ENCOUNTER 2022-10-04 12:03 | Emergency (ER) | payer MEDICARE, BC ==
[2022-10-04 12:51] VITALS: BP 132/69; PULSE 62
[2022-10-04] MEDS ORDERED: Sulfamethoxazole/Trimethoprim 800-160 MG Tab PO ONE (13:26)
[2022-10-04] MEDS ORDERED: Doxycycline Monohydrate 100 MG Cap PO ONE (13:27)
[2022-10-04] MEDS ORDERED: Lidocaine 1% 10 ML MDV INJECT ONE (13:29)
== END 2022-10-04 15:45 | disposition home or self-care (01) ==
LOC: JD.ED 12:03
DX: N49.2 Inflammatory disorders of scrotum (principal); I10 Essential (primary) hypertension; K21.9 Gastro-esophageal reflux disease without esophagitis; E66.9 Obesity, unspecified; Z68.30 Body mass index [BMI] 30.0-30.9, adult; Z79.899 Other long term (current) drug therapy
CPT/HCPCS: 54700; 87070; 87075; 87077; 87186; 87205; 99283; A9270; 10060; J3490

== ENCOUNTER 2022-11-03 01:10 | Emergency (ER) | payer MEDICARE, BC ==
[2022-11-03 01:39] VITALS: BP 113/59; PULSE 73
[2022-11-03 03:24] LABS: ESTIMATED GFR 80 mL/min (>60)
[2022-11-03] MEDS ORDERED: Acetaminophen/HYDROcodone 325-5 MG Tab PO ONE (03:24)
[2022-11-03] MEDS ORDERED: predniSONE 20 MG Tab PO ONE (04:06)
== END 2022-11-03 04:38 | disposition home or self-care (01) ==
LOC: JD.ED 01:10
DX: M25.522 Pain in left elbow (principal); M10.9 Gout, unspecified; K21.9 Gastro-esophageal reflux disease without esophagitis; I10 Essential (primary) hypertension; E66.9 Obesity, unspecified; Z68.30 Body mass index [BMI] 30.0-30.9, adult; Z79.899 Other long term (current) drug therapy
CPT/HCPCS: 36415; 73080; 80053; 84550; 85025; 99283; A9270; J7512

== ENCOUNTER 2024-06-24 13:48 | Day surgery (SDC) | payer BC, MEDICARE ==
[2024-06-24] MEDS: Polymyxin B/Trimethoprim 10 ML Bottle EYERT SCH (14:40)
[2024-06-24] MEDS: Brimonidine 0.2% Ophth Soln 5 ML Bottle EYERT SCH (14:45)
[2024-06-24] MEDS: Phenylephrine 2.5% Ophth Soln 2 ML Bot EYERT SCH (14:50)
[2024-06-24] MEDS: Tropicamide 1% Ophth Soln 3 ML Bottle EYERT SCH (14:55)
[2024-06-24] MEDS: Tetracaine HCl/PF 0.5% 4 ML Bottle EYEBOTH SCH (15:55)
[2024-06-24] MEDS: Lidocaine 1% PF 2 ML SDV INJECT SCH (16:19)
[2024-06-24] MEDS: Cefuroxime 10 MG/ML SYRINGE EYERT SCH (16:29)
[2024-06-24] MEDS: Pilocarpine 4% Ophth Soln 15 ML Bot EYERT SCH (16:33)
[2024-06-24 16:41] VITALS: BP 137/40; PULSE 77
== END 2024-06-24 16:38 ==
LOC: JD.SDS 13:48
PROVIDERS: ATTEND Ophthalmology
DX: H25.813 Combined forms of age-related cataract, bilateral (principal); H21.81 Floppy iris syndrome; H21.41 Pupillary membranes, right eye; H40.013 Open angle with borderline findings, low risk, bilateral; I10 Essential (primary) hypertension; E78.2 Mixed hyperlipidemia; K21.9 Gastro-esophageal reflux disease without esophagitis; F32.A Depression, unspecified; Z79.899 Other long term (current) drug therapy
CPT/HCPCS: A9270-GY; J0697; J3490

== ENCOUNTER 2024-07-29 07:48 | Day surgery (SDC) | payer BC, MEDICARE ==
[2024-07-29] MEDS: Polymyxin B/Trimethoprim 10 ML Bottle EYELF SCH (08:01)
[2024-07-29] MEDS: Brimonidine 0.2% Ophth Soln 5 ML Bottle EYELF SCH (08:06)
[2024-07-29] MEDS: Phenylephrine 2.5% Ophth Soln 2 ML Bot EYELF SCH (08:11)
[2024-07-29] MEDS: Tropicamide 1% Ophth Soln 3 ML Bottle EYELF SCH (08:16)
[2024-07-29] MEDS: Tetracaine HCl/PF 0.5% 4 ML Bottle EYEBOTH SCH (08:38)
[2024-07-29] MEDS: Lidocaine 1% PF 2 ML SDV INJECT SCH (08:38)
[2024-07-29] MEDS: Cefuroxime 10 MG/ML SYRINGE EYELF SCH (08:38)
[2024-07-29] MEDS: Pilocarpine 4% Ophth Soln 15 ML Bot EYELF SCH (08:39)
== END 2024-07-29 10:16 ==
LOC: JD.SDS 07:48
PROVIDERS: ATTEND Ophthalmology
DX: H25.812 Combined forms of age-related cataract, left eye (principal); H21.81 Floppy iris syndrome; H21.42 Pupillary membranes, left eye; I10 Essential (primary) hypertension; E78.2 Mixed hyperlipidemia; K21.9 Gastro-esophageal reflux disease without esophagitis; Z87.891 Personal history of nicotine dependence; Z79.899 Other long term (current) drug therapy
CPT/HCPCS: 66982; A9270; J0697; J3490